=== PATIENT | male | born 2000 | race Hispanic/Latino ===

== ENCOUNTER → 2019-11-16 | Outpatient (CLI) | payer MEDICAID | LOC: GOCC 11:30 | PROVIDERS: ATTEND Internal Medicine | DX: J96.20 Acute and chronic respiratory failure, unspecified whether with hypoxia or hypercapnia (principal); G93.1 Anoxic brain damage, not elsewhere classified; G93.6 Cerebral edema; R13.10 Dysphagia, unspecified; S02.2XXA Fracture of nasal bones, initial encounter for closed fracture; E03.9 Hypothyroidism, unspecified; R35.8 Other polyuria; M62.82 Rhabdomyolysis; N19 Unspecified kidney failure; D64.9 Anemia, unspecified; I46.9 Cardiac arrest, cause unspecified; K59.00 Constipation, unspecified; D72.829 Elevated white blood cell count, unspecified; E87.0 Hyperosmolality and hypernatremia; R74.0 Nonspecific elevation of levels of transaminase and lactic acid dehydrogenase [LDH]; F19.10 Other psychoactive substance abuse, uncomplicated; Z93.0 Tracheostomy status ==

== ENCOUNTER → 2020-02-10 | Outpatient (CLI) | payer MEDICAID | LOC: GOCC 11:58 | PROVIDERS: ATTEND Internal Medicine | DX: N19 Unspecified kidney failure (principal); R35.8 Other polyuria; N39.0 Urinary tract infection, site not specified; R50.9 Fever, unspecified ==

== ENCOUNTER 2020-02-14 14:00 | Emergency (ER) | payer MEDICAID ==
[2020-02-14 14:29] VITALS: O2SAT 100
--- NOTE | 2020-02-14 14:46 | RAD ---
EXAM DESCRIPTION: Chest,1 View CLINICAL HISTORY: 19 years Male, possible arrhythmia COMPARISON: None. Findings: Two view(s)/radiograph(s) Appropriately placed tracheostomy. Cardiac silhouette and pulmonary vasculature are within normal limits. No pneumothorax. No pleural effusion. The lungs are clear. No acute osseous abnormality. IMPRESSION: No acute cardiopulmonary abnormality. Electronically signed by: Yoseph Barr MD 02/14/2020 2:44 PM PBX INSPECTOR
--- NOTE | 2020-02-14 17:58 | ED.PDOC ---
History of Present Illness - General Chief Complaint: Cardiac Respiratory Arrest Stated Complaint: fluctuating heart rate Time Seen by Provider: 02/14/20 14:08 Source: EMS notes reviewed Exam Limitations: clinical condition - History of Present Illness Initial Comments: The [id number] male presented from the long-term care facility secondary concern for arrhythmia. He was content concerned that his heart may have been going up to 180 bpm. Duration of this is uncertain. There was no telemetry strips indicating this. Time EMS arrived his heart rate was back down to normal and has been normal since. The patient does not appear to be in any distress. He is not really capable of communicating. There is no diaphoresis. He does not appear short of breath. He is alert but is unable to communicate. He is in normal sinus rhythm around 80 bpm upon arrival. Timing/Duration: unsure Severity: mild Improving Factors: nothing Allergies/Adverse Reactions: Allergies NO KNOWN ALLERGY Allergy (Verified 02/14/20 14:29) Review of Systems - Review of Systems Review of Systems: 02/14/20 17:57 The patient is unable to give a review of systems secondary to his long-term medical problems. Past Medical History (General) - Social History Hx Tobacco Use: No Hx Alcohol Use: No Hx Substance Use: No Hx Substance Use Treatment: No Hx Depression: No - Activities of Daily Living [facility] (if applicable):: [facility] Family Medical History - Family History Mother Family History: Unknown Physical Exam - Physical Exam General Appearance: Alert - Eyes were open. Head is primarily turned more towards the left. Some movement in his extremities though he cannot move them to command. 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 He is on a trach collar currently. Eye Exam: bilateral normal Ears, Nose, Throat: normal pharynx, other - He does appear to at least hear me when I talk to him. Neck: other - Trach collar is in place with tracheostomy. Respiratory: lungs clear, normal breath sounds, no respiratory distress, no accessory muscle use Cardiovascular/Chest: normal peripheral pulses, regular rate, rhythm, no edema Peripheral Pulses: radial,right: 2+, radial,left: 2+, dorsalis pedis,right: 2+, dorsalis pedis,left: 2+ Gastrointestinal/Abdominal: non tender - G-tube is in place. No evidence of pain. No evidence of obvious trauma., soft Extremity: no pedal edema, normal capillary refill, other - Contractures as above Neurologic: alert, other - The patient is apparently at his baseline though I am unfamiliar with him. See above. Skin Exam: normal color Comments: Vital Signs - 24 hr 02/14/20 14:23 Temperature 99.0 F Pulse Rate [ 99 H pulse ox] Respiratory 24 Rate Blood Pressure 117/74 [Left Arm] O2 Sat by Pulse 100 Oximetry Progress - Progress Progress: 02/14/20 18:00 The patient is a 19-year-old male sent in for the possibility of an arrhythmia. The patient has been monitored for more than 4 hours exhibiting no evidence of any arrhythmia here. No evidence of any discomfort. Initial and repeat cardiac enzymes are negative. Laboratory work including electrolytes are otherwise within normal limits. He has tested negative for coronavirus and was here. No evidence of any acute pathology otherwise. The patient will be back to his long-term care facility. The patient does have something of a mild tremor with some movements and he apparently does have a history of seizures which on telemetry may be misinterpreted as an arrhythmia. No evidence of current seizure activity here. ER warnings are given for any significant worsening. lee ngoc [id number] - Results/Orders Results/Orders: 02/14/20 14:15 EKG STAT Laboratory Results - last 24 hr 02/14/20 02/14/20 02/14/20 14:25 14:25 14:25 WBC 9.0 RBC 4.29 L Hgb 14.1 Hct 40.5 L MCV 94.4 H MCH 32.9 H MCHC 34.8 RDW 12.6 Plt Count 171 MPV 10.7 H Absolute Neuts (auto) 7.50 H Absolute Lymphs (auto) 1.10 Absolute Monos (auto) 0.30 Absolute Eos (auto) 0.00 Absolute Basos (auto) 0.10 Neutrophils % 83.0 H Lymphocytes % 12.0 L Monocytes % 3.8 Eosinophils % 0.0 L Basophils % 1.2 PT INR PTT (SP) D-Dimer, Quantitative Sodium 135 Potassium 4.2 Chloride 97 L Carbon Dioxide 26 Anion Gap 16.2 BUN 10 Creatinine 0.46 L BUN/Creatinine Ratio 21.7 H Random Glucose 99 Serum Osmolality 269.2 L Lactic Acid 1.7 Calcium 9.0 Magnesium 1.9 Total Bilirubin 0.5 AST 25 ALT 27 Alkaline Phosphatase 87 Creatine Kinase 35 L CK-MB (CK-2) 1.5 CK-MB (CK-2) % Not Reportable Troponin I < 0.02 B-Natriuretic Peptide < 15.0 Serum Total Protein 7.4 Albumin 3.7 Globulin 3.7 H Albumin/Globulin Ratio 1.0 L TSH 1.67 02/14/20 02/14/20 14:25 17:14 WBC RBC Hgb Hct MCV MCH MCHC RDW Plt Count MPV Absolute Neuts (auto) Absolute Lymphs (auto) Absolute Monos (auto) Absolute Eos (auto) Absolute Basos (auto) Neutrophils % Lymphocytes % Monocytes % Eosinophils % Basophils % PT 10.0 INR 1.01 PTT (SP) 25.4 D-Dimer, Quantitative < 131.0 L Sodium Potassium Chloride Carbon Dioxide Anion Gap BUN Creatinine BUN/Creatinine Ratio Random Glucose Serum Osmolality Lactic Acid Calcium Magnesium Total Bilirubin AST ALT Alkaline Phosphatase Creatine Kinase 32 L CK-MB (CK-2) 1.3 CK-MB (CK-2) % Not Reportable Troponin I < 0.02 B-Natriuretic Peptide Serum Total Protein Albumin Globulin Albumin/Globulin Ratio TSH Chest x-ray shows no acute pathology. EKG shows normal sinus rhythm at 97 bpm with possibly mild short MD. Normal R wave progression. Very mild right axis deviation. Normal QT interval. No elevation of ST segments. No ST or T wave changes indicative of acute ischemia. Rapid coronavirus test is negative. Departure - Departure Clinical Impression: Tachycardia Disposition: Discharge to SNF Condition: Fair Departure Forms: ED Discharge - Pt. Copy, Patient Portal Self Enrollment Diet: other Activity: increase activity as tolerated Referrals: BETHANY LUCAS [Primary Care Provider] - 1-2 Weeks Additional Instructions: The patient is a 19-year-old male sent in for the possibility of an arrhythmia. The patient has been monitored for more than 4 hours exhibiting no evidence of any arrhythmia here. No evidence of any discomfort. Initial and repeat cardiac enzymes are negative. Laboratory work including electrolytes are otherwise within normal limits. He has tested negative for coronavirus and was here. No evidence of any acute pathology otherwise. The patient will be back to his long-term care facility. The patient does have something of a mild tremor with some movements and he apparently does have a history of seizures which on telemetry may be misinterpreted as an arrhythmia. No evidence of current seizure activity here. ER warnings are given for any significant worsening. He needs to follow-up with the facility doctor within the next few days.
[2020-02-14 19:53] VITALS: BP 130/86; TEMP 97.6
== END 2020-02-14 20:00 ==
LOC: ER 14:00
DX: R00.0 Tachycardia, unspecified (principal); G40.919 Epilepsy, unspecified, intractable, without status epilepticus; Z20.828 Contact with and (suspected) exposure to other viral communicable diseases; Z93.0 Tracheostomy status; Z93.1 Gastrostomy status
CPT/HCPCS: 36415; 71045; 80053; 82550; 82553; 83605; 83735; 83880; 84443; 84484; 85025; 85379; 85610; 85730; 87635; 93005; J2060

== ENCOUNTER 2020-02-25 00:50 | Emergency (ER) | payer MEDICAID ==
--- NOTE | 2020-02-25 01:34 | RAD ---
EXAM DESCRIPTION: XR Chest,1 View CLINICAL HISTORY: fever unknown source TECHNIQUE: Single frontal view of the chest is submitted. COMPARISON: 02/14/2020 FINDINGS: Heart: The cardiothoracic silhouette is within normal limits. Lungs: No focal consolidation. Mediastinum: Unremarkable Pleura: No appreciable effusion. No pneumothorax. Bones: Intact Upper abdomen: Unremarkable Other: Tracheostomy tube remains in place. IMPRESSION: No acute disease. Electronically signed by: Seymour Willis MD 02/25/2020 1:33 AM [facility]
[2020-02-25 02:07] VITALS: TEMP 99.5; O2SAT 99
--- NOTE | 2020-02-25 02:36 | ED.PDOC ---
History of Present Illness - General Chief Complaint: Fever Stated Complaint: fever, elevated HR Time Seen by Provider: 02/25/20 02:05 Source: patient, RN notes reviewed, Vital Signs reviewed Exam Limitations: no limitations - History of Present Illness Initial Comments: Patient is a 19-year-old male who presents from snf with complaints of fever and tachycardia. Patient is on a vent. By way of medical history, he overdosed when he was younger, had an anoxic brain injury and ended up being vented and in a alf facility. The history of present illness and review of systems are limited secondary to patient's condition. Patient was noted to be febrile and tachycardic at the snf, he was given Tylenol and 30 minutes later was not improved so was sent here to the ED. Timing/Duration: 1-3 hours Severity: mild Improving Factors: nothing Worsening Factors: nothing Associated Symptoms: fever/chills Allergies/Adverse Reactions: Allergies NO KNOWN ALLERGY Allergy (Verified 02/25/20 01:05) Home Medications: Ambulatory Orders Diazepam (Anticonvulsant) [Diazepam Rectal Gel] 10 mg DE Q8HR PRN #5 gel 02/14/20 Review of Systems - Review of Systems Constitutional: States: see HPI, chills, fever Cardiology: States: see HPI, palpitations Unable to Obtain Due To: clinical condition - Patient is on a vent and has anoxic brain injury. Past Medical History (General) - Patient Medical History Hx Seizures: Yes - febrile Hx Stroke: No Hx Dementia: No Hx Asthma: No Hx of COPD: No Hx Cardiac Disorders: No Hx Congestive Heart Failure: No Hx Pacemaker: No Hx Hypertension: No Hx Thyroid Disease: Yes Hx Diabetes: No Hx Gastroesophageal Reflux: No Hx Renal Disease: No Hx Cancer: No Hx of HIV: No Hx Hepatitis C: No Hx MRSA: No Surgical History: noncontributory - Social History Hx Tobacco Use: No Hx Alcohol Use: No Hx Substance Use: No Hx Substance Use Treatment: No Hx Depression: No - Activities of Daily Living Senior Care/Assisted Living (if applicable):: [facility] Family Medical History - Family History Mother Family History: Unknown Physical Exam - Physical Exam General Appearance: Alert, Well Developed, Well Groomed, Well Hydrated, Well Nourished Eye Exam: bilateral normal Ears, Nose, Throat: hearing grossly normal, normal pharynx Neck: non-tender, supple Respiratory: chest non-tender, no respiratory distress, no accessory muscle use, rhonchi - Rhonchi diffusely throughout Cardiovascular/Chest: normal peripheral pulses, no gallop, no murmur, tachycardia Peripheral Pulses: radial,right: 2+, radial,left: 2+ Gastrointestinal/Abdominal: normal bowel sounds, soft, no organomegaly Back Exam: normal inspection, no CVA tenderness, no vertebral tenderness Extremity: non-tender, no pedal edema, other - Upper extremities with contractures. Lower extremities and plantar flexion. Neurologic: alert, aphasia Skin Exam: normal color, warm/dry Lymphatic: no adenopathy Progress - Progress Progress: Differential diagnosis: UTI, Covid, pneumonia, sepsis among others. 02/25/20 02:38 Work-up is unrevealing for source of fever or tachycardia. Urine is clear, lab work unremarkable. Lactic acid within normal limits. Blood cultures are pending. Covid is negative. Chest x-ray does not show any infection. Plan on discharge back to nursing facility for further care. Severino Hodgson M.D. #[id number] - Results/Orders Results/Orders: EXAM DESCRIPTION: XR Chest,1 View CLINICAL HISTORY: fever unknown source TECHNIQUE: Single frontal view of the chest is submitted. COMPARISON: 02/14/2020 FINDINGS: Heart: The cardiothoracic silhouette is within normal limits. Lungs: No focal consolidation. Mediastinum: Unremarkable Pleura: No appreciable effusion. No pneumothorax. Bones: Intact Upper abdomen: Unremarkable Other: Tracheostomy tube remains in place. IMPRESSION: No acute disease. Electronically signed by: Seymour Willis MD 02/25/2020 1:33 AM [employer] Covid: Negative 02/25/20 01:15 EKG STAT 02/25/20 01:25 BLOOD CULTURE Stat Laboratory Results - last 24 hr 02/25/20 02/25/20 02/25/20 01:10 01:10 01:10 WBC 8.0 RBC 4.39 L Hgb 14.4 Hct 41.6 L MCV 94.8 H MCH 32.9 H MCHC 34.7 RDW 12.9 Plt Count 144 MPV 10.5 H Absolute Neuts (auto) 6.60 Absolute Lymphs (auto) 0.70 L Absolute Monos (auto) 0.70 Absolute Eos (auto) 0.00 Absolute Basos (auto) 0.00 Neutrophils % 82.8 H Lymphocytes % 8.2 L Monocytes % 8.3 Eosinophils % 0.5 L Basophils % 0.2 Sodium 139 Potassium 4.2 Chloride 102 Carbon Dioxide 26 Anion Gap 15.2 BUN 9 Creatinine 0.48 L BUN/Creatinine Ratio 18.8 Random Glucose 98 Serum Osmolality 276.2 Lactic Acid 1.3 Calcium 9.0 Total Bilirubin 0.5 AST 24 ALT 24 Alkaline Phosphatase 83 Creatine Kinase CK-MB (CK-2) CK-MB (CK-2) % Troponin I Serum Total Protein 7.5 Albumin 3.9 Globulin 3.6 H Albumin/Globulin Ratio 1.1 Urine Color Urine Appearance Urine pH Ur Specific Marshall Urine Protein Urine Glucose (UA) Urine Ketones Urine Blood Urine Nitrite Urine Bilirubin Urine Urobilinogen Ur Leukocyte Esterase Urine RBC Urine WBC Ur Epithelial Cells Amorphous Sediment Urine Bacteria 02/25/20 02/25/20 01:10 01:10 WBC RBC Hgb Hct MCV MCH MCHC RDW Plt Count MPV Absolute Neuts (auto) Absolute Lymphs (auto) Absolute Monos (auto) Absolute Eos (auto) Absolute Basos (auto) Neutrophils % Lymphocytes % Monocytes % Eosinophils % Basophils % Sodium Potassium Chloride Carbon Dioxide Anion Gap BUN Creatinine BUN/Creatinine Ratio Random Glucose Serum Osmolality Lactic Acid Calcium Total Bilirubin AST ALT Alkaline Phosphatase Creatine Kinase 47 CK-MB (CK-2) 1.9 CK-MB (CK-2) % Not Reportable Troponin I < 0.02 Serum Total Protein Albumin Globulin Albumin/Globulin Ratio Urine Color Yellow Urine Appearance Sl cloudy Urine pH 7.5 Ur Specific Marshall 1.020 Urine Protein Negative Urine Glucose (UA) Negative Urine Ketones Trace Urine Blood Small H Urine Nitrite Negative Urine Bilirubin Negative Urine Urobilinogen 0.2 Ur Leukocyte Esterase Negative Urine RBC 10-20 H Urine WBC 0-1 Ur Epithelial Cells 0 Amorphous Sediment 1+ Urine Bacteria 0 Vital Signs 02/25/20 02/25/20 00:50 02:00 Temperature 99.7 F H 99.5 F Pulse Rate [ 124 H 118 H monitor] Respiratory 24 24 Rate Blood Pressure 156/97 156/97 [left wrist] O2 Sat by Pulse 98 99 Oximetry Departure - Departure Clinical Impression: Tachycardia, Fever of unknown origin Fever Qualifiers: Fever type: unspecified Qualified Code(s): R50.9 - Fever, unspecified Time of Disposition: 02:40 Disposition: Discharge to SNF Condition: Good Departure Forms: ED Discharge - Pt. Copy, Patient Portal Self Enrollment Instructions: Fever of Unknown Origin, Sinus Tachycardia (DC) Diet: resume usual diet Activity: as per physical therapy Referrals: BETHANY LUCAS [Primary Care Provider] - 1-5 Days Home Medications: Ambulatory Orders Diazepam (Anticonvulsant) [Diazepam Rectal Gel] 10 mg DE Q8HR PRN #5 gel 02/14/20
[2020-02-25 02:49] VITALS: BP 135/89
== END 2020-02-25 02:57 ==
LOC: ER 00:50
DX: R50.9 Fever, unspecified (principal); R00.0 Tachycardia, unspecified; E07.9 Disorder of thyroid, unspecified; Z20.828 Contact with and (suspected) exposure to other viral communicable diseases; Z93.0 Tracheostomy status; Z79.899 Other long term (current) drug therapy; Z99.11 Dependence on respirator [ventilator] status; Z87.820 Personal history of traumatic brain injury